=== PATIENT | male | born 1985 | race African-American/Black ===

== ENCOUNTER 2018-07-15 21:12 | Emergency (ER) | payer OTHER ==
[~2018-07-15] VITALS: Ht 188 cm; Wt 81.6 kg
[~2018-07-15 21:12] MED LIST: PERCOCET 10-321 EAC1 PO
[2018-07-15] MEDS ORDERED: Tetanus/Diptheria/Pertussis Vaccine 0.5ml Syr IM ONE (21:15)
[2018-07-15] MEDS ORDERED: IBUPROFEN600 MG ORAL (21:20)
[2018-07-15] MEDS ORDERED: AUGMENTIN 875-1 EAC1 ORAL (21:20)
--- NOTE | 2018-07-15 21:21 | Emergency Room Report ---
History of Present Illness General Chief Complaint: Medical Clearance Source: Patient Present Illness HPI Is a 33-year-old male brought in by police for medical clearance. He had a forearm fracture that require surgery. He currently in a cast. He is under arrest and in the process of arresting him canine was use. He had some puncture wound to his hand. The dog also bit the cast. Patient complaining of bleeding to the hand. No other injury. Pain is 10 out of 10. Allergies: Coded Allergies: No Known Allergies (Unverified , 07/15/18) Patient History Past Medical History: see triage record, old chart reviewed Past Surgical History: other Pertinent Family History: none Social History: Denies: smoking Immunizations: other Reviewed Nursing Documentation: PMH: Agreed; PSxH: Agreed Nursing Documentation-PMH Past Medical History: No Stated History Review of Systems Eye: Denies: eye pain, blurred vision ENT: Denies: ear pain, nose congestion, throat swelling Respiratory: Denies: cough, shortness of breath Cardiovascular: Denies: chest pain, palpitations Gastrointestinal: Denies: abdominal pain, diarrhea, nausea, vomiting Musculoskeletal: Reports: muscle pain; Denies: back pain, joint pain Skin: Denies: rash Neurological: Denies: headache, numbness Endocrine: Denies: increased thirst, increased urine Hematologic/Lymphatic: Denies: easy bruising All Other Systems: negative except mentioned in HPI Physical Exam Vital Signs Date Time Temp Pulse Resp B/P (MAP) Pulse Ox O2 Delivery O2 Flow Rate FiO2 07/15/18 21:07 98.8 84 18 137/76 100 Room Air vitals normal Sp02 EP Interpretation: reviewed, normal General Appearance: well appearing, no apparent distress, alert Head: normocephalic, atraumatic Eyes: bilateral eye PERRL, bilateral eye EOMI ENT: hearing grossly normal, normal pharynx Neck: full range of motion, supple, no meningismus Respiratory: chest non-tender, lungs clear, normal breath sounds Cardiovascular #1: regular rate, rhythm, no murmur Gastrointestinal: normal bowel sounds, non tender, no mass, no organomegaly, no bruit, non-distended Musculoskeletal: back normal, gait/station normal, normal range of motion, other - Left arm with a short-arm cast on. The cast is intact. There is some superficial break in his cast on the dog bite. He has puncture wound to the volar aspect of the third and fourth MCP near the palm. Range of motion the joint. No deep cuts that require laceration repair. No active bleeding. A foreign body. Psychiatric: mood/affect normal Skin: warm/dry Medical Decision Making Diagnostic Impression: Primary Impression: Dog bite of left hand Qualified Codes: S61.452A - Open bite of left hand, initial encounter; W54.0XXA - Bitten by dog, initial encounter Additional Impression: Examination, medicolegal reason ER Course This patient presents with a dog bite to his hand. It superficial. No evidence of any laceration that need to be sutured. No evidence of any bony injury or ligament injury. I see no need to take down the cast and x-ray him. The injury to the cast is very superficial. The force of the dog bite were unable to break the cast. We'll discharge to police. Last Vital Signs Date Time Temp Pulse Resp B/P (MAP) Pulse Ox O2 Delivery O2 Flow Rate FiO2 07/15/18 21:07 98.8 84 18 137/76 100 Room Air Status: unchanged Disposition: D/C TO LAW ENFORCEMENT IN [facility] Condition: Stable Scripts Ibuprofen* (MOTRIN*) 600 Mg Tablet 600 MG ORAL THREE TIMES A DAY, #30 TAB 0 Refills Prov: Ta Rodrigues MD 07/15/18 Amoxicillin/Potassium Clav 875-125* (AUGMENTIN 875-125 TABLET*) 1 Each Tablet 1 TAB ORAL TWICE A DAY, #14 TAB Prov: Ta Rodrigues MD 07/15/18 Additional Instructions: Follow-up with orthopedic doctor in 7 days for recheck. Keep the wound clean. Return if symptom worsen. Ta Rodrigues MD Jul 15, 2018 21:21
[2018-07-15 21:30] VITALS: BP 137/76
--- NOTE | 2018-07-15 21:30 | NUR ---
ED Nurse Note: RECIEVED PT FROUGHT IN BY PD UNDER POLICE CUSTODY AND IN HANDCUFFS, PT HERE FOR MEDICAL CLEARANCE, PT WAS BIT BY POLICE DOG, PT HAS CAST TO RIGHT ARM WHERE HE STATES HE WAS BITTEN, NO WOUND NOTED, MARKINGS NOTED IN CAST, PT STATES HE WAS BITTEN AND HAS PAIN AT 10/10, PT IS AGITATED AND AGRESSIVE TOWARDS ALL STAFF, PT SLIGHTLY CALMED DOWN, GIVEN WATER TO DRINK, TOLERATED WELL, ALSO GIVEN INJECTIONS, PT DENIES CP, NO SOB OR ALBORED BREATHING, PT IS BEING RELEASED BACK IN CUSTODY TO OFFICERS AND DISCHARGED UNDER THEIR CUSTODY, PT LEFT DEPARTMENT AMBULATING WITH NAD NOTED.
[2018-07-15 21:35] VITALS: BP 137/76
== END 2018-07-15 21:35 ==
LOC: EDBD 21:12 → EMR 21:30
DX: S61.432A Puncture wound without foreign body of left hand, initial encounter (principal); W54.0XXA Bitten by dog, initial encounter; Y92.89 Other specified places as the place of occurrence of the external cause; Z23 Encounter for immunization; Z02.89 Encounter for other administrative examinations
CPT/HCPCS: 90471; 90715; 99283